=== PATIENT | female | born 1990 | race Caucasian/White ===

== ENCOUNTER 2021-03-09 01:51 | Emergency (ER) | payer SELFPAY ==
--- NOTE | 2021-03-09 01:52 | EDM.PDOC ---
ED HPI GENERAL MEDICAL PROBLEM - General Stated Complaint: SICK Time Seen by Provider: 03/09/21 01:52 Source of Information: Reports: Patient History Limitations: Reports: No Limitations - History of Present Illness INITIAL COMMENTS - FREE TEXT/NARRATIVE: 30-year-old female no past medical history presents for pelvic pain. Patient presents with boyfriend. They have both noted over the past couple of days lesions that they were attributing to razor burn but they are now concerned for STI. She notes that her boyfriend did sleep with somebody else recently. She notes mild burning sensation with urination. She notes subjective swollen lymph nodes in her groin. She notes some nausea but no vomiting. Mild dysuria. general Pain Score (Numeric/FACES): 5 - Related Data Allergies Allergy/AdvReac Type Severity Reaction Status Date / Time metronidazole [From Flagyl] Allergy Hives Verified 03/09/21 02:19 Sulfa (Sulfonamide Allergy Facial Verified 03/09/21 02:19 Antibiotics) Swelling Home Meds: Home Meds Acyclovir 400 mg PO TID #21 tablet 03/09/21 [Rx] ED ROS GENERAL - Review of Systems Review Of Systems: Comprehensive ROS is negative, except as noted in HPI. ED EXAM, GENERAL - Physical Exam Exam: See Below Exam Limited By: No Limitations General Appearance: Alert, WD/WN, No Apparent Distress Throat/Mouth: Normal Voice, No Airway Compromise Head: Atraumatic, Normocephalic Respiratory/Chest: No Respiratory Distress, No Accessory Muscle Use Cardiovascular: Normal Peripheral Pulses, Regular Rate, Rhythm GI/Abdominal: Soft, Non-Tender (Female) Exam: Normal External Exam, Other (white vaginal d/c, no sores/lesions appreciated) Extremities: Normal Inspection Neurological: Alert, Normal Cognition Psychiatric: Normal Affect, Normal Mood Skin Exam: Warm, Dry, Intact, Normal Color Course - Vital Signs Last Recorded V/S: Last Vital Signs Temp 97 F 03/09/21 02:03 Pulse 120 H 03/09/21 02:03 Resp BP 139/93 H 03/09/21 02:03 Pulse Ox 100 03/09/21 02:03 - Orders/Labs/Meds Orders: Active Orders 24 hr Category Date Time Status CHLAMYDIA AND GONORRHEA BY TMA Stat Lab 03/09/21 02:24 Received diphenhydrAMINE [Benadryl] Med 03/09/21 03:20 Once 25 mg PO ONETIME ONE metroNIDAZOLE Med 03/09/21 03:20 Once 2,000 mg PO NOW ONE Labs: Laboratory Tests 03/09/21 03/09/21 03/09/21 Range/Units 02:06 02:06 02:24 Urine Color YELLOW Urine Appearance HAZY Urine pH 7.0 (5.0-8.0) Ur Specific [place] 1.020 (1.001-1.035) Urine Protein NEGATIVE (NEGATIVE) mg/dL Urine Glucose (UA) NEGATIVE (NEGATIVE) mg/dL Urine Ketones NEGATIVE (NEGATIVE) mg/dL Urine Occult Blood NEGATIVE (NEGATIVE) Urine Nitrite NEGATIVE (NEGATIVE) Urine Bilirubin NEGATIVE (NEGATIVE) Urine Urobilinogen 0.2 (<2.0) EU/dL Ur Leukocyte Esterase TRACE H (NEGATIVE) Urine RBC 0-2 (0-2/HPF) Urine WBC 2-4 (0-5/HPF) Ur Epithelial Cells FEW (NONE-FEW) Amorphous Sediment MODERATE (NEGATIVE) Urine Bacteria 1+ H (NEGATIVE) Urine Mucus MODERATE (NONE-MOD) Urine HCG, Qual NEGATIVE (NEGATIVE) Lucy species DNA NEGATIVE (NEGATIVE) Gardnerella DNA Probe POSITIVE H (NEGATIVE) Trichomonas DNA Probe POSITIVE H (NEGATIVE) Meds: Medications Discontinued Medications Generic Name Dose Route Start Last Admin Trade Name Freq PRN Reason Stop Dose Admin Azithromycin 1,000 mg 03/09/21 02:37 03/09/21 02:49 Azithromycin 250 Mg Tab PO 03/09/21 02:38 1,000 mg STAT STA Administration Ceftriaxone Sodium 500 mg/ 1 mls @ 1 mls/sec 03/09/21 02:37 03/09/21 02:50 Lidocaine HCl IM 03/09/21 02:38 1 mls/sec ONETIME ONE Administration Ondansetron HCl 4 mg 03/09/21 02:25 03/09/21 02:50 Ondansetron 4 Mg Tab.Dis PO 03/09/21 02:26 4 mg ONETIME ONE Administration - Re-Assessments/Exams Free Text/Narrative Re-Assessment/Exam: 03/09/21 02:31 We will get trichomonas, urinalysis, urine , gonorrhea chlamydia testing. Will treat with ceftriaxone and azithromycin prophylactically. Will give Zofran for nausea. 03/09/21 03:21 Trichomonas vaginalis; will give flagyl. Patient gets hives but no anaphylaxis, will give with benadryl. Doxycycline for bacteruria and concern for STI. Acyclovir for possible herpes; no lesions noted but boyfriend diagnosed with herpes and she has had exposure and states she did have some blistering lesions which have since healed but still has burning sensation. Departure - Departure Time of Disposition: 03:22 Disposition: Home, Self-Care 01 Condition: Good Clinical Impression: STI (sexually transmitted infection) - Discharge Information Prescriptions: Acyclovir 400 mg PO TID #21 tablet Instructions: Cervicitis, [id number] Referrals: PCP,Not In Area [Primary Care Provider] - Additional Instructions: The following information is given to patients seen in the emergency department who are being discharged to home. This information is to outline your options for follow-up care. We provide all patients seen in our emergency department with a follow-up referral. The need for follow-up, as well as the timing and circumstances, are variable depending upon the specifics of your emergency department visit. If you don't have a primary care physician on staff, we will provide you with a referral. We always advise you to contact your personal physician following an emergency department visit to inform them of the circumstance of the visit and for follow-up with them and/or the need for any referrals to a consulting specialist. The emergency department will also refer you to a specialist when appropriate. This referral assures that you have the opportunity for follow-up care with a specialist. All of these measure are taken in an effort to provide you with optimal care, which includes your follow-up. Under all circumstances we always encourage you to contact your private physician who remains a resource for coordinating your care. When calling for follow-up care, please make the office aware that this follow-up is from your recent emergency room visit. If for any reason you are refused follow-up, please contact the [facility] Emergency Department at and asked to speak to the emergency department charge nurse. Please follow up with your primary care physician. If you do not have a primary care physician, see below: [facility] [address] [place] [id number] [facility] [address] [place] [id number] [facility] [address] [place] [address] Sepsis Event Note (ED) - Focused Exam Vital Signs: Vital Signs Temp Pulse BP Pulse Ox 03/09/21 02:03 97 F 120 H 139/93 H 100 - My Orders Last 24 Hours: My Active Orders 03/09/21 02:24 CHLAMYDIA AND GONORRHEA BY TMA Stat 03/09/21 03:20 diphenhydrAMINE [Benadryl] 25 mg PO ONETIME ONE metroNIDAZOLE 2,000 mg PO NOW ONE - Assessment/Plan Last 24 Hours: My Active Orders 03/09/21 02:24 CHLAMYDIA AND GONORRHEA BY TMA Stat 03/09/21 03:20 diphenhydrAMINE [Benadryl] 25 mg PO ONETIME ONE metroNIDAZOLE 2,000 mg PO NOW ONE
[2021-03-09] MEDS ORDERED: Ondansetron 4 MG Tab.DIS PO ONE (02:25)
[2021-03-09] MEDS ORDERED: Azithromycin 250 MG Tab PO STA (02:37)
[2021-03-09] MEDS ORDERED: cefTRIAXone 500 MG in Lidocaine 1% 1 ML IM ONE (02:37)
[2021-03-09] MEDS ORDERED: diphenhydrAMINE 25 MG Cap PO ONE (03:20)
[2021-03-09] MEDS ORDERED: metroNIDAZOLE 250 MG Tab PO ONE (03:20)
[2021-03-10 13:06] LABS: C.TRACHOMATIS BY TMA Negative (Negative); N.GONORRHOEAE BY TMA Negative (Negative)
== END 2021-03-09 03:45 | disposition home or self-care (01) ==
LOC: MW.ED 01:51
DX: A64 Unspecified sexually transmitted disease (principal); Z88.1 Allergy status to other antibiotic agents; Z88.2 Allergy status to sulfonamides
CPT/HCPCS: 81001; 81025; 87480; 87491; 87510; 87591; 87660; 96372; 99284; A9270; J0696; 99283